=== PATIENT | male | born 1985 | race Caucasian/White ===

== ENCOUNTER 2019-10-01 14:12 | Emergency (ER) | payer OTHER ==
[~2019-10-01] VITALS: Ht 162.6 cm; Wt 70.3 kg
[~2019-10-01 14:12] MED LIST: BACTRIM DS TAB1 EACH PO; IBUPROFEN 800800 M1 PO; IBUPROFEN 800800 MG PO; KEFLEX500 MG PO; NOHOMEMEDICATIONS; NORCO 5-325 TA1 EACH PO; PREDNISONE 20 M20 MG PO; VALIUM5 MG PO; VEETIDS 500500 MG PO
[2019-10-01] MEDS ORDERED: IBUPROFEN 800800 M1 PO (15:39)
[2019-10-01] MEDS ORDERED: NORCO 5-325 TA1 EAC2 PO (15:39)
[2019-10-01] MEDS ORDERED: PERCOCET 5-3251 EACH PO (15:43)
[2019-10-01 16:03] VITALS: BP 138/74
== END 2019-10-01 16:05 | disposition home or self-care (01) ==
LOC: M.ERS 14:12
DX: S52.502A Unspecified fracture of the lower end of left radius, initial encounter for closed fracture (principal); F17.210 Nicotine dependence, cigarettes, uncomplicated; V98.8XXA Other specified transport accidents, initial encounter; Y93.89 Activity, other specified; Y92.89 Other specified places as the place of occurrence of the external cause; Y99.8 Other external cause status

== ENCOUNTER 2019-10-12 18:17 | Emergency (ER) | payer OTHER | END 2019-10-12 20:31 | disposition home or self-care (01) | LOC: M.ERS 18:17 | DX: S52.572A Other intraarticular fracture of lower end of left radius, initial encounter for closed fracture (principal); X50.0XXA Overexertion from strenuous movement or load, initial encounter; Y93.89 Activity, other specified; Y92.89 Other specified places as the place of occurrence of the external cause; Y99.8 Other external cause status ==

== ENCOUNTER 2019-10-24 13:36 | Emergency (ER) | payer OTHER ==
[~2019-10-24] VITALS: Ht 162.6 cm; Wt 70.3 kg
[~2019-10-24 13:36] MED LIST changes: +NORCO 5-325 TA1 EAC2 PO; +PERCOCET 5-3251 EACH PO
[2019-10-24] MEDS ORDERED: FLEXERIL PO (13:44)
[2019-10-24] MEDS ORDERED: NAPROSYN500 MG PO (13:44)
[2019-10-24 13:47] VITALS: BP 138/75
== END 2019-10-24 13:57 | disposition home or self-care (01) ==
LOC: M.ERS 13:36
DX: S62.102D Fracture of unspecified carpal bone, left wrist, subsequent encounter for fracture with routine healing (principal); Z76.0 Encounter for issue of repeat prescription; Z76.5 Malingerer [conscious simulation]; X58.XXXD Exposure to other specified factors, subsequent encounter